=== PATIENT | male | born 1995 | race Caucasian/White ===

== ENCOUNTER 2017-06-16 19:23 | Emergency (ER) | payer MEDICAID, OTHER ==
[~2017-06-16] VITALS: Ht 177.8 cm; Wt 54.0 kg
[~2017-06-16 19:23] MED LIST: ADVAIR; ALBU8.5H3 INH; ALBUTEROL; ALBUTEROL INH; CIPR500T4 PO; CLARITIN; MONT10TA21 PO; NASONEX; PRED20TA PO; SINGULAIR
[2017-06-16 19:35] VITALS: Ht 177.8 cm; Wt 54.0 kg
[2017-06-16] MEDS ORDERED: HYDROCODONE/APAP (5/325) TAB PO ONE (22:00)
[2017-06-16] MEDS ORDERED: TYL500 PO (22:17)
[2017-06-16] MEDS ORDERED: PEN500 PO (22:17)
[2017-06-16 22:35] VITALS: BP 119/70; PULSE 89; RESP 20; TEMP 99.6
--- NOTE | 2017-06-16 22:38 | ERD ---
ER Documentation Chief Complaint Date/Time DATE: 06/16/17 TIME: 22:35 Chief Complaint sore throat x 3 days HPI This is a 22-year-old male presents here with a sore throat for the last 3 days. Patient has had fever, body pain and has been taking ibuprofen which has helped with his fevers. Patient states that sore throat is worse whenever he swallows. He however denies any difficulty in swallowing or breathing. He denies any chest pain or shortness of breath. ROS 12 point review of systems was done, all negative except per HPI. Medications Home Meds Active Scripts Acetaminophen* (Tylenol*) 500 Mg Tab, 1000 MG PO Q8H Y for PAIN AND OR ELEVATED TEMP for 3 Days, TAB Prov:ARPIT VILLANUEVA 06/16/17 Penicillin V Potassium* (Penicillin V K*) 500 Mg Tab, 500 MG PO Q8 for 7 Days, TAB Prov:ARPIT VILLANUEVA 06/16/17 Montelukast Sodium* (Singulair*) 10 Mg Tablet, 10 MG PO QHS, #30 TAB Prov:EBONIE LARKIN PA-C 10/21/16 Ciprofloxacin Hcl* (Ciprofloxacin Hcl*) 500 Mg Tablet, 500 MG PO BID for 7 Days , TAB Prov:EBONIE LARKIN PA-C 10/21/16 Albuterol Sulfate* (Proair HFA*) 8.5 Gm Hfa.aer.ad, 2 PUFF INH Q4, #1 INHALER Prov:EBONIE LARKIN PA-C 10/21/16 Prednisone* (Prednisone*) 20 Mg Tab, 40 MG PO DAILY for 4 Days, TAB Prov:EBONIE LARKIN PA-C 10/21/16 Reported Medications [Nasonex] No Conflict Check 06/02/12 [Advair] No Conflict Check 06/02/12 [Claritin] No Conflict Check 06/02/12 [Albuterol] No Conflict Check 06/02/12 [Singulair] No Conflict Check 06/02/12 [Albuterol Inh] No Conflict Check 10/15/09 Allergies Allergies: Coded Allergies: No Known Drug Allergies (Verified Allergy, Mild, 11/09/13) PMhx/Soc Medical and Surgical Hx: pt denies Surgical Hx History of Surgery: No Anesthesia Reaction: No Hx Neurological Disorder: No Hx Respiratory Disorders: Yes (Asthma) Hx Cardiac Disorders: No Hx Psychiatric Problems: No Hx Miscellaneous Medical Probl: No Hx Alcohol Use: No Hx Substance Use: No Hx Tobacco Use: No Smoking Status: Never smoker Physical Exam Vitals Vital Signs Date Time Temp Pulse Resp B/P Pulse Ox O2 Delivery O2 Flow Rate FiO2 06/16/17 19:35 101.5 121 20 132/80 99 Physical Exam GENERAL: The patient is well-developed, well-nourished, in no acute distress. NECK: Cervical spine is non tender with no step off. Supple, no nuchal rigidity HEENT: Atraumatic. Pupils equal, round and reactive to light. Extraocular muscles are grossly intact. Conjunctivae pink, no discharge. Bilateral tympanic membranes are clear with no evidence of erythema, effusion or dulling of the light reflex. Bilateral tonsillar erythema with exudates. No uvular deviation no kissing tonsils. RESPIRATORY: Clear to auscultation bilaterally. There are no rales, wheezes or rhonchi. HEART: Regular rate and rhythm. No murmurs, clicks, rubs or gallops. NEUROLOGIC: Alert and oriented. SKIN: There is no rash. The skin is warm and dry. Results 24 hrs Current Medications Medications (Trade) Dose Ordered Sig/[place] Route PRN Reason Start Time Stop Time Status Last Admin Dose Admin Acetaminophen/ Hydrocodone Bitart ([place] (5/325)) 2 tab ONCE ONCE PO 06/16/17 22:00 06/16/17 22:01 DC 06/16/17 21:55 Procedures/MDM This is a 22-year-old male presents here with sore throat, fever and body aches. Patient did have tonsillar exudates, however there is no evidence of uvular deviation or kissing tonsils. Suspicion for retropharyngeal or peritonsillar abscess is low. Suspicion for meningitis or sepsis is low. Patient does not have any meningeal signs and does not have any nuchal rigidity. He is not septic appearing. Patient will be sent with penicillin with Tylenol. He is to follow-up with his primary care doctor within 1-2 days or return to ER sooner if symptoms worsen. My medical decision making sure with the patient he understands and agrees with plan. Departure Diagnosis: Primary Impression: Strep throat Condition: Stable Patient Instructions: Strep Throat Additional Instructions: Call your primary care doctor TOMORROW for an appointment during the next 1-2 days.See the doctor sooner or return here if your condition worsens before your appointment time. ARPIT VILLANUEVA Jun 16, 2017 22:38
== END 2017-06-16 22:36 | disposition home or self-care (01) ==
LOC: E/R 19:23
DX: J02.0 Streptococcal pharyngitis (principal); J45.909 Unspecified asthma, uncomplicated
CPT/HCPCS: Z7502; Z7610; 99283

== ENCOUNTER 2018-06-16 07:24 | Emergency (ER) | END 2018-06-16 09:00 | disposition left against medical advice (07) ==